=== PATIENT | male | born 1990 | race Two or more races ===

== ENCOUNTER 2019-05-06 19:38 | Emergency (ER) | payer BC, OTHER ==
[~2019-05-06] VITALS: Ht 170.2 cm; Wt 72.6 kg
[2019-05-06 23:00] VITALS: BP 167/100
[2019-05-06] MEDS ORDERED: KETOROLAC TROMETH 60MG/2ML VIAL IM ONE (23:00)
[2019-05-06] MEDS ORDERED: HYDROcodone-ACET 10/325MG TAB PO ONE (23:00)
[2019-05-06] MEDS ORDERED: DexAMETHasone SOD PHOS 10MG/1ML VIAL INJ IM ONE (23:00)
== END 2019-05-07 00:12 | disposition home or self-care (01) ==
LOC: ER 19:38 → EDBD 19:38 → ER 05-07 00:11
DX: S02.2XXA Fracture of nasal bones, initial encounter for closed fracture (principal); S00.212A Abrasion of left eyelid and periocular area, initial encounter; M62.838 Other muscle spasm; V49.49XA Driver injured in collision with other motor vehicles in traffic accident, initial encounter; Y93.89 Activity, other specified; Y99.9 Unspecified external cause status; Y92.410 Unspecified street and highway as the place of occurrence of the external cause
CPT/HCPCS: 70450; 70486; 72125; 96372; 99284; J1100; J1885